=== PATIENT | female | born 1995 | race Hispanic/Latino ===

== ENCOUNTER 2025-07-20 10:58 | Emergency (ER) | payer SELFPAY ==
[2025-07-20 11:50] LABS: Urine Crystals Unidentified Few /HPF (None Seen); Urine Culture Reflex Order REFLEXED; Urine Microscopic Reflex YN ORDER UMIC; Urine WBC Clump Rare /HPF (None Seen)
--- NOTE | 2025-07-20 12:01 | EDPHYS ---
Physician Documentation [facility] Name: Roro Infante Age: 29 yrs Sex: Female : 1995 Arrival Date: 07/20/2025 Time: 10:58 Bed 12 Private MD: ED Physician Matt Samuels HPI: 07/20 11:51 This 29 yrs old Female presents to ER via Unassigned with complaints of dr5 Urinary Problem. 11:51 Onset: The symptoms/episode began/occurred this morning. Patient is a 29-year-old dr5 female with no past medical history coming in with dysuria, urinary frequency that started this morning. Patient reports that she has had these in the past and is concerned about having urinary tract infection. Patient denies back pain, fever, chest pain, shortness of breath. Patient has history of urinary tract infections.. Historical: - Allergies: 11:51 Vancomycin; dr5 - PMHx: 11:51 None; dr5 - Immunization history:: Adult Immunizations up to date. - Infectious Disease History:: Denies. - Social history:: Smoking status: Patient denies any tobacco usage or history of. ROS: 11:51 Constitutional: as per hpi Eyes: Negative for injury, pain, redness, and discharge, dr5 ENT: Moist mucous membranes. Neck: Negative for injury, pain, and swelling, Cardiovascular: Negative for chest pain, palpitations, and edema, Respiratory: Negative for shortness of breath, cough, wheezing, and pleuritic chest pain, Back: Negative for injury and pain, MS/Extremity: Negative for injury and deformity, Skin: Negative for injury, rash, and discoloration, Neuro: Negative for headache, weakness, numbness, tingling, and seizure, Exam: 11:51 Constitutional: This is a well developed, well nourished patient who is awake, alert, dr5 and in no acute distress. Head/Face: Normocephalic, atraumatic. Eyes: Pupils equal round and reactive to light, extra-ocular motions intact. Lids and lashes normal. Conjunctiva and sclera are non-icteric and not injected. Cornea within normal limits. Periorbital areas with no swelling, redness, or edema. ENT: Nares patent. No nasal discharge, no septal abnormalities noted. Tympanic membranes are normal and external auditory canals are clear. Oropharynx with no redness, swelling, or masses, exudates, or evidence of obstruction, uvula midline. Mucous membranes moist. Neck: Trachea midline, no thyromegaly or masses palpated, and no cervical lymphadenopathy. Supple, full range of motion without nuchal rigidity, or vertebral point tenderness. No Meningismus. Chest/axilla: Normal chest wall appearance and motion. Nontender with no deformity. No lesions are appreciated. Cardiovascular: Regular rate and rhythm with a normal S1 and S2. Normal PMI, no JVD. No pulse deficits. Respiratory: Lungs have equal breath sounds bilaterally, clear to auscultation. No rales, rhonchi or wheezes noted. No increased work of breathing, no retractions or nasal flaring. Abdomen/GI: Soft, non-tender, non-distended Back: No spinal tenderness. No costovertebral tenderness. Full range of motion. Skin: Warm, dry with normal turgor. Normal color with no rashes, no lesions, and no evidence of cellulitis. MS/ Extremity: Pulses equal, no cyanosis. Neurovascular intact. Full, normal range of motion. Neuro: Awake and alert, GCS 15, oriented to person, place, time, and situation. Cranial nerves II-XII grossly intact. Motor strength 5/5 in all extremities. Sensory grossly intact. Cerebellar exam normal. Normal gait. 11:51 Abdomen/GI: Inspection: abdomen appears normal, Bowel sounds: active, Palpation: abdomen is soft and non-tender, soft, Vital Signs: 11:00 BP 131 / 67; Pulse 75; Resp 18; Temp 98; Pulse Ox 99% ; bp MDM: 11:01 Medical Screening Exam initiated dr5 12:01 Differential diagnosis: viral Infection, bacterial infection, UTI. Data reviewed: vital dr5 signs, nurses notes. Data reviewed: lab test result(s), urinalysis, bacteruria, UPT: negative. Consideration of Admission/Observation Escalation of care including admission/observation considered. Escalation considered patient found to have fever or CVA tenderness. 12:06 I considered the following discharge prescriptions or medication management in the [facility] emergency department I discussed and recommended Over The Counter medications, Medications were administered in the Emergency Department. See MAR. Care significantly affected by the following Social Determinants of Health: Poor access to healthcare and/or lack of insurance, Poor access to transportation, Problems related to employment. Counseling: I had a detailed discussion with the patient and/or guardian regarding the historical points, exam findings, and any diagnostic results supporting the discharge/admit diagnosis, the presence of at least one elevated blood pressure reading (>120/80) during this emergency department visit, lab results, the need for outpatient follow up, for definitive care, a family practitioner, to return to the emergency department if symptoms worsen or persist or if there are any questions or concerns that arise at home. Medication response: Rocephin. Response to treatment: No reaction. Special discussion: I discussed with the patient/guardian in detail that at this point there is no indication for admission to the hospital. It is understood, however, that if the symptoms persist or worsen the patient needs to return immediately for re-evaluation. Based on the history and exam findings, there is no indication for further emergent testing or inpatient evaluation. I discussed with the patient/guardian the need to see the primary care provider for further evaluation of the symptoms. ED course: Patient called mother who states that her brother is allergic to cephalosporins and not her. Patient reports she has had cephalosporins in the past with no reaction. Rocephin injection given in ER for urinary tract infection and will send patient home with Keflex twice daily. Increase hydration. All questions answered. Strict ER precautions given. 07/20 11:01 Order name: UA Rfx Serge Cult if indicated; Complete Time: 11:52 dr5 07/20 11:01 Order name: Test, Urine; Complete Time: 11:52 dr5 07/20 11:54 Order name: Urine Culture EDMS Administered Medications: 12:24 Drug: Rocephin (cefTRIAXone) IM 1 grams IM once Route: IM; Site: right gluteus; bp 12:24 Follow up: Response: No adverse reaction bp Disposition: 18:39 Co-signature as Attending Physician, Matt Samuels MD I reviewed the patient's care rn provided by the Advanced Practice Provider and agree with the diagnosis and treatment plan. Disposition Summary: 07/20/25 12:00 Discharge Ordered Notes: Location: Home dr5 Condition: Stable dr5 Diagnosis - UTI/ Urinary tract infection, site not specified dr5 Followup: dr5 - With: Emergency Department - When: As needed - Reason: Worsening of condition Followup: dr5 - With: Private Physician - When: 1 - 2 days - Reason: Recheck today's complaints, Continuance of care, Re-evaluation by your physician Discharge Instructions: - Discharge Summary Sheet dr5 - Urinary Tract Infection, Adult, [id number] dr5 Forms: - Medication Reconciliation Form dr5 - Antibiotic Education dr5 - Patient Portal Instructions dr5 - Leadership Thank You Letter dr5 Prescriptions: - Cephalexin 500 mg Oral Capsule - take 1 capsule ORAL route every 12 hours for 10 days; 20 capsule; Refills: 0, dr5 Product Selection Permitted Signatures: Dispatcher [employer] EDMS Matt Samuels MD MD rn Peltier, Brian, RN RN bp Rhodes, Dustin, DELIVERY ANALYST-C DELIVERY ANALYST-Cdr5 Corrections: (The following items were deleted from the chart) 11:02 11:02 UA Rfx Serge Cult if indicated+U.LAB.BRZ ordered. EDMS EDMS 11:02 11:02 Test, Urine+UC.LAB.BRZ ordered. EDMS EDMS 12:05 11:51 Allergies: Ceclor; dr5 dr5
[2025-07-20] MEDS ORDERED: CEFTRIAXONE 1000 MG/VIAL ONE (12:06)
--- NOTE | 2025-07-20 12:28 | ER ---
Nurse's Notes [facility] Name: Roro Infante Age: 29 yrs Sex: Female : 1995 Arrival Date: 07/20/2025 Time: 10:58 Bed 12 Private MD: Diagnosis: UTI/ Urinary tract infection, site not specified Presentation: 07/20 11:00 Chief complaint: Patient states: URINARY FREQUENCY AND URGENCY x2 DAYS. Coronavirus bp screen: At this time, the client does not indicate any symptoms associated with coronavirus-19. Ebola Screen: No symptoms or risks identified at this time. Initial Sepsis Screen: Does the patient meet any 2 criteria? No. Patient's initial sepsis screen is negative. Does the patient have a suspected source of infection? No. Patient's initial sepsis screen is negative. Risk Assessment: Do you want to hurt yourself or someone else? Patient reports no desire to harm self or others. Onset of symptoms is unknown. 11:00 Method Of Arrival: Ambulatory bp 11:00 Acuity: YOHANNES 4 bp Triage Assessment: 11:00 General: Appears in no apparent distress. Behavior is calm, appropriate for age. Pain: bp Denies pain. EENT: No deficits noted. Neuro: No deficits noted. Cardiovascular: No deficits noted. Respiratory: No deficits noted. GI: No signs and/or symptoms were reported involving the gastrointestinal system. : Reports burning with urination, urinary frequency. Derm: No deficits noted. Musculoskeletal: No deficits noted. Historical: - Allergies: 11:51 Vancomycin; dr5 - PMHx: 11:51 None; dr5 - Immunization history:: Adult Immunizations up to date. - Infectious Disease History:: Denies. - Social history:: Smoking status: Patient denies any tobacco usage or history of. Screenin:26 [facility] ED Fall Risk Assessment (Adult) History of falling in the last 3 months, bp including since admission No falls in past 3 months (0 pts) Confusion or Disorientation No (0 pts) Intoxicated or Sedated No (0 pts) Impaired Gait No (0 pts) Mobility Assist Device Used No (0 pt) Altered Elimination No (0 pt) Score/Fall Risk Level 0 - 2 = Low Risk Oriented to surroundings. Abuse screen: Denies threats or abuse. Denies injuries from another. Nutritional screening: No deficits noted. Tuberculosis screening: No symptoms or risk factors identified. Vital Signs: 11:00 BP 131 / 67; Pulse 75; Resp 18; Temp 98; Pulse Ox 99% ; bp ED Course: 11:00 Arm band placed on. bp 11:01 Patient arrived in ED. al6 11:01 [facility]C [facility] 11:01 Matt Samuels MD is Attending Physician. dr5 11:33 Test, Urine Sent. dr5 11:33 UA Rfx Serge Cult if indicated Sent. dr5 12:05 Silvestre Kwong, RN is Primary Nurse. bp 12:25 Triage completed. bp 12:26 No provider procedures requiring assistance completed. Patient did not have IV access bp during this emergency room visit. 12:26 Patient has correct armband on for positive identification. bp Administered Medications: 12:24 Drug: Rocephin (cefTRIAXone) IM 1 grams IM once Route: IM; Site: right gluteus; bp 12:24 Follow up: Response: No adverse reaction bp Outcome: 12:00 Discharge ordered by MD. dr5 12:26 Discharged to home ambulatory, bp 12:26 Condition: stable 12:26 Discharge instructions given to patient, Instructed on discharge instructions, follow up and referral plans. medication usage, Demonstrated understanding of instructions, follow-up care, medications, Prescriptions given X 1, 12:27 Patient left the ED. bp Addendum: 07/24/2025 10:50 Addendum: Culture Results: Positive urine culture. Bacteria is resistant to, has j l7 intermediate sensitivity, or is not tested against prescribed antibiotics. Report given to AIDA for further evaluation and then to front edger for follow up with patient. Prescription called-in to pharmacy of choice. [facility] Malik, Macrobid 100mg PO BID x 7 days, #14 pills. Signatures: Edis Blair RN RN [id number] Silvestre Kwong, KAITLYN RN bp Justin Dao FNP-C DOCTOR NATUROPATHIC-Cdr5 Sola Ogden al6 Corrections: (The following items were deleted from the chart) 07/20 12:05 11:51 Allergies: Ceclor; dr5 dr5
[2025-07-20 12:36] VITALS: BP 131/67; TEMP 98; O2SAT 99
== END 2025-07-20 12:27 | disposition home or self-care (01) ==
LOC: ER 10:58
DX: N39.0 Urinary tract infection, site not specified (principal)
CPT/HCPCS: 81001; 81025; 87077; 87086; 87088; 87186; 96372; 99284; J0696